=== PATIENT | male | born 1980 | race Caucasian/White ===

== ENCOUNTER 2016-06-03 16:39 | Emergency (ER) | payer SELFPAY ==
[~2016-06-03] VITALS: Ht 165.1 cm; Wt 88.5 kg
[2016-06-03 21:03] VITALS: BP 151/87
== END 2016-06-03 20:52 | disposition left against medical advice (07) ==
LOC: ED 16:39
DX: Z53.21 Procedure and treatment not carried out due to patient leaving prior to being seen by health care provider (principal)